=== PATIENT | female | born 1995 | race Caucasian/White ===

== ENCOUNTER 2021-03-04 16:49 | Emergency (ER) | payer OTHER, SELFPAY ==
[2021-03-04 17:07] VITALS: BP 106/74; PULSE 95; RESP 16; TEMP 36.4; O2SAT 99
--- NOTE | 2021-03-04 17:26 | ED.ANIMALBIT ---
HPI - Animal Bite General Chief Complaint: Animal Bite Stated Complaint: Animal Bite History of Present Illness HPI narrative: This is a 25-year-old comes in complaining of being bit by a possible patient states that she saw a possum in the road and it was just lying there so she went to go pick them up because she wanted to help him according to patient when she went to go pick him up he bit twice Related Data Home Medications Medication Instructions Recorded Confirmed buspirone 10 mg PO DAILY 06/02/19 06/02/19 trazodone 50 mg PO HS 06/02/19 06/02/19 venlafaxine [Effexor XR] 150 mg PO DAILY 06/02/19 06/02/19 Allergies Allergy/AdvReac Type Severity Reaction Status Date / Time Penicillins Allergy Blister Verified 03/04/21 17:35 Review of Systems Review of Systems: CONSTITUTIONAL: Denies fever, chills, or sweats. EYES: Denies visual changes, redness, or discharge. ENT: Denies rhinorrhea, congestion, sore throat, or otalgia. CARDIOVASCULAR:Denies chest pain, palpitations, or edema. RESPIRATORY: Denies cough or dyspnea. GASTROINTESTINAL: Denies abdominal pain, nausea, vomiting, or diarrhea. GENITOURINARY: Denies dysuria or hematuria. SKIN:[Denies rash or itching. Right hand has a small mady that has erythema surrounding it left hand has a marked with erythema surrounding MUSCULOSKELETAL:Denies back pain, joint pain, or myalgia. NEUROLOGIC: Denies headache, numbness, or weakness. PSYCHIATRIC:Denies anxiety or depression PMFSH Comments At time as signature, I have reviewed and agree with nursing past medical, social, surgical and family history. Please see nursing chart for further information. There is no relevant family history pertinent to the presenting complaint. Exam Narrative: GENERAL:Well-appearing, well-nourished, and in no acute distress. HEAD:Normocephalic, atraumatic. EYES: PERRLA and EOMI. ENT: Nares clear, no rhinorrhea or epistaxis. Mucous membranes moist. NECK: Supple. CHEST: Clear to auscultation. No respiratory distress. HEART: Regular rate and rhythm. Normal peripheral pulses. ABDOMEN: Soft, nontender, nondistended, normal active bowel sounds. EXTREMITIES: Normal range of motion. No edema. Right hand with erythema surrounding area left hand swollen around the knuckles with erythema and some slight edema from bite mady SKIN: Warm, dry, no rash. NEURO: No focal deficits. Alert and oriented x3. Course Course Emergency Course: Called the emergency room and spoke with Dr. Sanchez who did not think patient would need to have rabies shots. Called and spoke to [facility] caramel cutter helper who informed me that possums do not generally carry rabies and patient would not be in need of rabies shots Vital Signs Vital signs: Vital Signs Temperature 97.6 F 03/04/21 17:07 Pulse Rate 95 03/04/21 17:07 Respiratory Rate 16 03/04/21 17:07 Blood Pressure 106/74 03/04/21 17:07 Pulse Oximetry 99 03/04/21 17:07 Temperature 97.6 F 03/04/21 17:07 Pulse Rate 95 03/04/21 17:07 Respiratory Rate 16 03/04/21 17:07 Blood Pressure 106/74 03/04/21 17:07 Pulse Oximetry 99 03/04/21 17:07 MDM - Animal Bite Differential Diagnosis Differential diagnosis: Likely bite by animal, cat bite, dog bite and rabies contact Discharge Plan Discharge Clinical Impression: Bite by animal Patient Disposition: Home, Self-Care Condition: Stable Instructions: Antibiotic Form, Animal Bite (ED) Additional Instructions: Apply antibiotic ointment as directed. This helps prevent infection in minor skin wounds. It is available without a doctor's order. Keep the wound clean and covered. Wash the wound every day with soap and water or germ-killing cleanser. Ask your healthcare provider about the kinds of bandages to use. Apply ice on your wound. Ice helps decrease swelling and pain. Ice may also help prevent tissue damage. Use an ice pack, or put crushed ice in a plastic bag. Cover it with a towel and place
== END 2021-03-04 17:58 | disposition home or self-care (01) ==
PROVIDERS: Emergency Provider Nurse Practitioner Family
DX: S61.452A Open bite of left hand, initial encounter (principal); S61.451A Open bite of right hand, initial encounter; W64.XXXA Exposure to other animate mechanical forces, initial encounter
CPT/HCPCS: 99212; G0463